=== PATIENT | female | born 1945 | race Caucasian/White ===

== ENCOUNTER 2018-03-28 13:40 | Observation (INO) ==
[2018-03-28] MEDS ORDERED: 0.9 % Sodium Chloride 1,000 ML IVC ONE ×3 (15:05→23:43)
[2018-03-28] MEDS ORDERED: Ondansetron 4 MG/2 ML VIAL IVP ONE (15:05)
--- NOTE | 2018-03-28 15:08 | Emergency Department Note ---
Disposition Clinical Impression: MATHEW (acute kidney injury), Hypokalemia Disposition: Admitted As Inpatient Condition: Good Referrals: Ramone Rader MD [Primary Care Provider] - Forms: ED Satisfaction Letter General Adult HPI - General Chief complaint: ED Urogenital-Female Stated complaint: unable to void Time Seen by Provider: 03/28/18 14:45 Source: patient Mode of arrival: ambulatory Limitations: no limitations Nursing Notes Reviewed: Yes Vital Signs Reviewed: Yes - History of Present Illness HPI Narrative: Patient presents for evaluation of decreased ability to void. She states she has the urge but is unable to get fluid out. Bedside ultrasound shows no significant fluid within the bladder. Patient has had decreased appetite with decreased by mouth intake over the last several weeks. These are more chronic symptoms that have been worsening in nature. She does have a history of frequent UTIs. Patient is not been checked recently. Patient will receive blood work, urinalysis, CT scan to rule out further pathology. Pain Scale: 0 - Related Data Previous Rx's Medication Instructions Recorded Cetirizine HCl [Zyrtec] 10 mg PO DAILY #4 capsule 08/26/17 Hydrocortisone 1% CREAM [Cortaid] 28 appl TP BID #1 bottle 08/26/17 Allergies Allergy/AdvReac Type Severity Reaction Status Date / Time Sulfa (Sulfonamide Allergy See Verified 03/28/18 13:59 Antibiotics) Comments sulfamethoxazole Allergy See Verified 03/28/18 13:59 [From Bactrim] Comments trimethoprim [From Bactrim] Allergy See Verified 03/28/18 13:59 Comments STEROIDS Allergy See Uncoded 03/28/18 13:59 Comments All systems ED: reviewed and negative except as stated. Review of Systems: As Per HPI Constitutional: Reports: weakness. Denies: fever, chills ENT ED: Denies: congestion Cardiovascular: Denies: chest pain, palpitations, dyspnea on exertion Respiratory: Denies: cough, dyspnea, wheezes Gastrointestinal: Reports: abdominal pain (Epigastric), nausea. 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 nondistended; no guarding, rebound, or tenderness to percussion Musculoskeletal: Calves symmetric, nontender Skin: No rash, normal skin tone Neuro: Alert and Oriented to person, place, and time; No focal deficit Course - Reevaluation(s) Reevaluation #1: Patient with hyperkalemia and significant dehydration on labs. CT scan does not show any significant acute abnormality. Patient be admitted for hydration the rapy and further evaluation. Vital Signs Temperature 98.1 F 03/28/18 13:59 Pulse Rate 118 03/28/18 13:59 Respiratory Rate 20 03/28/18 13:59 Blood Pressure 101/57 03/28/18 13:59 O2 Sat by Pulse Oximetry 88 03/28/18 13:59 Temperature 98.1 F 03/28/18 15:55 Pulse Rate 107 03/28/18 15:55 Respiratory Rate 18 03/28/18 15:55 Blood Pressure 101/57 03/28/18 15:55 O2 Sat by Pulse Oximetry 88 03/28/18 15:55 Oxygen Delivery Oxygen Delivery Room Air Medical Decision Making - Medical Records Medical records reviewed: Yes I reviewed the patient's medical records. - Lab Data Lab results reviewed: Yes I reviewed the patient's lab results. Result diagrams: 03/28/18 16:01 03/28/18 16:01 Lab Results 03/28/18 03/28/18 03/28/18 Range/Units 16:01 16:01 16:01 WBC 11.9 H (4.3-11.1) K/mcL RBC 5.84 H (3.82-4.97) M/mcL Hgb 17.4 H (11.5-15.4) g/dL Hct 51.1 H (35.3-44.9) % MCV 87.5 (83.0-100.0) fL MCH 29.8 (28.0-33.3) pg MCHC 34.1 (31.6-35.5) g/dL RDW 13.8 (11.5-14.5) % Plt Count 267 (140-400) K/mcL MPV 11.1 (9.4-12.4) fL Immature Gran % 0.4 (0-4) % Seg Neutrophils % 83.0 % Lymphocytes % 3.9 % Monocytes % 10.9 % Eosinophils % 1.6 % Basophils % 0.2 % Neutrophils # 9.9 H (1.6-8.9) K/mcL Lymphocytes # 0.5 L (0.6-4.6) K/mcL Monocytes # 1.3 (0.0-1.3) K/mcL Eosinophils # 0.2 (0.0-0.6) K/mcL Basophils # 0.0 (0.0-0.2) K/mcL Sodium 130 L (136-145) mEq/L Potassium 3.1 L (3.5-5.1) mEq/L Chloride 81 L (98-107) mEq/L Carbon Dioxide 38 H (23-29) mEq/L BUN 48 H (8-23) mg/dL Creatinine 1.42 H (0.60-1.20) mg/dL Est GFR ( Amer) 44 L (> 60) Est GFR (Non-Af Amer) 36 L (> 60) BUN/Creatinine Ratio 34 H (6-26) Glucose 301 H (70-105) mg/dL Calculated Osmolality 294 (280-300) Calcium 10.3 (8.6-10.3) mg/dL Total Bilirubin 0.8 (0.3-1.0) mg/dL Direct Bilirubin 0.2 (0.0-0.2) mg/dL Indirect Bilirubin 0.6 (0.0-1.2) mg/dL AST 16 (13-39) Units/L ALT 12 (7-52) Units/L Alkaline Phosphatase 71 (34-104) Units/L Troponin I < 0.03 (< 0.04) ng/mL Serum Total Protein 6.8 (6.4-8.9) g/dL Albumin 4.0 (3.5-5.7) g/dL Globulin 2.8 (2.4-3.5) g/dL Albumin/Globulin Ratio 1.4 (1.1-2.2) Lipase 106 H (11-82) Units/L TSH 0.433 (0.340-5.600) mcIU/mL - Radiology Data Radiology results reviewed: Yes I reviewed the patient's radiology results. - EKG Data EKG #1 EKG attestation: Yes I reviewed and interpreted this EKG. EKG results narrative: EKG shows sinus tachycardia with a heart rate of 117 OK interval 167. QRS 89. QTC 459. No significant ST elevations or depressions. No old EKG for comparison.
[2018-03-28] MEDS ORDERED: Isovue-370 500 ML INFUS..BTL IV ONE (15:37)
[2018-03-28 16:11] LABS: Basophils % 0.2 %; Eosinophils # 0.2 K/mcL (0.0-0.6); Eosinophils % 1.6 %; Hematocrit 51.1 % (35.3-44.9); Hemoglobin 17.4 g/dL (11.5-15.4); Immature Granulocytes % 0.4 % (0-4); Lymphocytes # 0.5 K/mcL (0.6-4.6); Lymphocytes % 3.9 %; Mean Corpuscular HGB Conc 34.1 g/dL (31.6-35.5); Mean Corpuscular Hemoglobin 29.8 pg (28.0-33.3); Mean Corpuscular Volume 87.5 fL (83.0-100.0); Mean Platelet Volume 11.1 fL (9.4-12.4); Monocytes # 1.3 K/mcL (0.0-1.3); Monocytes % 10.9 %; Neutrophils # 9.9 K/mcL (1.6-8.9); Platelet Count 267 K/mcL (140-400); Red Blood Count 5.84 M/mcL (3.82-4.97); Red Cell Distribution Width 13.8 % (11.5-14.5)
[2018-03-28 16:33] LABS: Alanine Aminotransferase 12 Units/L (7-52); Albumin/Globulin Ratio 1.4 (1.1-2.2); Alkaline Phosphatase 71 Units/L (34-104); Aspartate Amino Transferase 16 Units/L (13-39); BUN/Creatinine Ratio 34 (6-26); Bilirubin,Direct 0.2 mg/dL (0.0-0.2); Bilirubin,Indirect 0.6 mg/dL (0.0-1.2); Bilirubin,Total 0.8 mg/dL (0.3-1.0); Blood Urea Nitrogen 48 mg/dL (8-23); Calcium 10.3 mg/dL (8.6-10.3); Carbon Dioxide 38 mEq/L (23-29); Chloride 81 mEq/L (98-107); Globulin 2.8 g/dL (2.4-3.5); Glucose 301 mg/dL (70-105); Lipase 106 Units/L (11-82); Osmolality,Calculated 294 (280-300); Potassium 3.1 mEq/L (3.5-5.1); Sodium 130 mEq/L (136-145); Total Protein 6.8 g/dL (6.4-8.9); Troponin I < 0.03 ng/mL (< 0.04); eGFR For Non-African Americans 36 (> 60)
[2018-03-28 19:53] LABS: Bilirubin,Urine Negative (Negative); Blood,Urine Negative (Negative); Clarity,Urine Clear (Clear); Color,Urine Yellow (Yellow); Glucose,Urine (UA) 500 mg/dL (Normal); Ketones,Urine Negative (Negative); Leukocyte Esterase,Urine Negative (Negative); Nitrite,Urine Negative (Negative); Protein,Urine Negative (Neg-Trace); Specific Gravity,Urine 1.022 (1.010-1.025); Urobilinogen,Urine Normal (Normal)
[2018-03-28] MEDS ORDERED: Ondansetron 4 MG/2 ML VIAL IVP PRN (23:35)
[2018-03-28] MEDS ORDERED: Naloxone 0.4 MG/ML INJ IVP PRN (23:35)
[2018-03-28] MEDS ORDERED: Potassium Chloride 40 MEQ, Lidocaine 1% 2 ML in D5% in Water 500 ML IVPB ONE (23:40)
[2018-03-28] MEDS ORDERED: *HR* Dextrose 50 % in Water (Syg) 50 ML SYRINGE IVP PRN (23:45)
[2018-03-28] MEDS ORDERED: D5% in Water 1,000 ML IVC PRN (23:45)
[2018-03-28] MEDS ORDERED: Dextrose Gel 15 GM/37.5 ML TUBE PO PRN ×2 (23:45)
--- NOTE | 2018-03-28 23:52 | Internal Med History&Physical ---
Date of Encounter: 03/28/18 Time of Encounter: 23:15 Internal Medicine - H&P: HPI Chief complaint: Acute kidney injury Admitted From: Emergency Dept Plans for Post Hospital Care: Home History of present illness: Ms. Chery is a 72 year old female Patient presented to the emergency room with 2 week history of decreased urine output and loss of appetite. She states that she has not felt the urge to urinate very much, and went to her primary care doctor who started treating her for a UTI despite lack of positive urinalysis. She was put on an antibiotic which she does not know the name as well as oxybutynin. Her symptoms do not improve on this regimen however. She is also had loss of appetite, resulting in a 13 pound weight loss in the last few weeks. She has some nausea but denies vomiting, diarrhea, chest pain abdominal pain. She says that she does have some constipation normally. She states that no one else in her household has similar issues, and she cannot think of any precipitating factor. She came to the emergency room for further evaluation. In the ER patient's CBC was within normal limits. BMP showed a low sodium of 130, a low potassium of 3.1, elevated creatinine of 1.4 to an elevated blood sugar of 301. Patient's troponin was undetectable, TSH was within normal limits and patient's lipase was elevated at 106. Patient's urinalysis only showed 500 glucose, chest x-ray showed no acute abnormalities, abdomen and pelvis CT showed no acute abnormalities. In the ER patient was given 2 L of IV fluids, Zofran for nausea and was started on potassium chloride for her low potassium. Due to her electrolyte abnormalities and MATHEW, she was admitted to the hospital for further management. Upon my assessment patient states that she feels like she needs to go to the bathroom. She also states that she feels hungry and thirsty as well. She is a heavy smoker but has not been smoking much the last few weeks. She denies excessive alcohol use as well as drug use. Patient also denies history of pancreatitis and kidney disease. She does however state that she has a history of diabetes, restless leg syndrome, vertigo, high cholesterol and hypertension. She does not know her medications. Past Med Surg Social Fam HX - Past Medical History Medical history: diabetes, hypertension, other Additional medical history: vertigo, restless leg syndrome, baretts esophagus, ostopenia, DDD, constipation, emphysema, dyslipidemia, skin cancer Psychiatric history: depression - Past Surgical History Surgical History: other Additional surgical history: colonoscopy, excision right forearm scc, - Social History Smoking Status: Current every day smoker Smokeless Tobacco Status: No Alcohol use: rarely Drug use: none - Family History Mother History Unknown: Yes Living Status: Hx Family Endocrine Disorder: Yes (DM) Father History Unknown: Yes Living Status: Age at : 59 Hx Family Endocrine Disorder: Yes (DM) Internal Medicine - H&P: Meds Cetirizine HCl [Zyrtec] 10 mg PO DAILY #4 capsule 08/26/17 [Rx] Hydrocortisone 1% CREAM [Cortaid] 28 appl TP BID #1 bottle 08/26/17 [Rx] Allergy/AdvReac Type Severity Reaction Status Date / Time Sulfa (Sulfonamide Allergy See Verified 03/28/18 13:59 Antibiotics) Comments sulfamethoxazole Allergy See Verified 03/28/18 13:59 [From Bactrim] Comments trimethoprim [From Bactrim] Allergy See Verified 03/28/18 13:59 Comments STEROIDS Allergy See Uncoded 03/28/18 13:59 Comments All Systems PM: A 10-system review of systems was performed and is negative for pertinent findings except as documented above in the HPI. - Constitutional Vitals: Temp Pulse Resp BP Pulse Ox 98.1 F 99 16 105/63 95 03/28/18 21:50 03/28/18 21:50 03/28/18 21:50 03/28/18 21:50 03/28/18 21:50 General appearance: Present: cooperative, A&O X 3, pleasant, no acute distress, answers questions appropriately Exam: As above - Head Head exam: Present: normal inspection - Eye Eye exam: Present: EOMI, normal appearance - Neck Neck exam general surgery: Absent: tenderness - Respiratory Respiratory exam: Present: decreased breath sounds, wheezes. Absent: chest wall tenderness, CTAB, rales, respiratory distress, rhonchi - Cardiovascular Cardiovascular exam: Present: RRR. Absent: diastolic murmur, systolic murmur - GI/Abdominal GI/Abdominal exam: Present: normal bowel sounds, soft. Absent: tenderness Additional comments: Palpation of the abdomen caused sensation of nausea with patient - Extremities Exam Extremities exam: Present: warm, radial pulses palpable and symmetrical. Absent: calf tenderness, pedal edema, tenderness - Neurological Exam Neurological exam: Present: no focal deficits, strengths equal and symetr throughout. Absent: motor sensory deficit, facial droop, speech deficit - Skin Skin exam: Present: dry, normal color, warm Internal Med - H&P Results - Labs CBC & Chem 7: 03/28/18 16:01 03/28/18 16:01 Labs: Short CBC 03/28/18 Range/Units 16:01 WBC 11.9 H (4.3-11.1) K/mcL Hgb 17.4 H (11.5-15.4) g/dL Hct 51.1 H (35.3-44.9) % Plt Count 267 (140-400) K/mcL Neutrophils # 9.9 H (1.6-8.9) K/mcL BMP 03/28/18 16:01 Sodium 130 L Potassium 3.1 L Chloride 81 L Carbon Dioxide 38 H BUN 48 H Creatinine 1.42 H Glucose 301 H Calcium 10.3 Cardiac Enzymes 03/28/18 Range/Units 16:01 Troponin I < 0.03 (< 0.04) ng/mL Liver Function 03/28/18 Range/Units 16:01 Total Bilirubin 0.8 (0.3-1.0) mg/dL Direct Bilirubin 0.2 (0.0-0.2) mg/dL AST 16 (13-39) Units/L ALT 12 (7-52) Units/L Alkaline Phosphatase 71 (34-104) Units/L Albumin 4.0 (3.5-5.7) g/dL Urine 03/28/18 Range/Units 19:35 Urine Color Yellow (Yellow) Urine Clarity Clear (Clear) Urine pH 6.0 (5.0-8.0) pH Units Ur Specific [place] 1.022 (1.010-1.025) Urine Protein Negative (Neg-Trace) mg/dL Urine Glucose (UA) 500 H (Normal) mg/dL - Impressions ITS Impressions Chest X-Ray 03/28/18 15:07 IMPRESSION: No acute findings. D/ / Gurjit Pérez MD / Gurjit Pérez MD Interpreting Provider: Gurjit Pérez MD Abdomen/Pelvis CT 03/28/18 15:37 IMPRESSION: 1. Uncomplicated diverticulosis 2. Heavy atherosclerosis. 3. Elsewhere, no significant abnormality appreciated. D/ / Jv Andre / Jv Andre Interpreting Provider: Jv Andre - Assessment and plan (1) MATHEW (acute kidney injury) Current Visit: Yes Status: Acute Assessment and plan: Likely prerenal as patient has not been eating or drinking much lately and has had decreased urine output. Patient was given 2 L of IV fluids in the emergency room. Additional liter of IV fluids given upon arrival to the floor Repeat labs in the morning (2) Hypokalemia Current Visit: Yes Status: Acute Assessment and plan: Likely secondary to poor by mouth intake. Patient was given 40 mEq of potassium by mouth in the emergency room Additional 40 mEq of potassium IV now Repeat labs in the morning (3) Hyponatremia Current Visit: Yes Status: Acute Assessment and plan: Likely secondary to poor nutrition, prerenal. Patient received 2 L of IV fluids in the ER. Continue IV fluid hydration Recheck labs in the morning (4) Diabetes Current Visit: Yes Status: Acute Assessment and plan: Patient is diabetic, with elevated blood sugar of 301 on lab testing. Monitor blood sugars with meals and at night Low-dose sliding scale insulin as needed Diabetic diet Qualifiers: Diabetes mellitus type: type 2 Diabetes mellitus complication status: with hyperglycemia Qualified Code(s): E11.65 - Type 2 diabetes mellitus with hyperglycemia (5) Wheezing Current Visit: Yes Status: Acute Assessment and plan: Patient's lung exam revealed wheezing bilaterally. Patient has a long history of smoking, with a diagnosis of COPD. She wears 2-3 L of oxygen at home. Currently she is not requiring more oxygen than her baseline. Chest x-ray showed no acute abnormalities. Breathing treatments with DuoNeb nebs and albuterol Continue oxygen supplementation as needed (6) Elevated lipase Current Visit: Yes Status: Acute Assessment and plan: Patient's lipase is elevated at 106, but she does not have abdominal pain on exam nor is there evidence of pancreatitis on CT scan of the abdomen. Continue to treat nausea with Zofran as needed Diabetic diet as tolerated (7) Nausea Current Visit: Yes Status: Acute Assessment and plan: patient has some nausea when palpating in the epigastric region of the abdomen, denies abdominal pain. Patient was given Zofran in the emergency room. Continue Zofran as needed Diabetic diet as tolerated (8) Lung nodule < 6cm on CT Current Visit: Yes Status: Acute Assessment and plan: Patient had CT performed on March 08 which indicated: 1. 4 mm right lower lobe pulmonary nodule, slightly increased in size since 2014. Due to its slow increase in size, short interval follow-up in 3-6 months is recommended to assess stability. 2. Stable 7 mm ground-glass opacity in the right apex stable since 2014. RECOMMENDATIONS: Per ACR Lung-RADS Version 1.0 Category 4A, Suspicious (Findings for which additional diagnostic testing and/or tissue sampling is recommended). Management : 3 Month LDCT; PET/CT may be used when there is a > 8mm solid component. Continue recommended follow-up (9) DVT prophylaxis Current Visit: Yes Status: Acute Assessment and plan: Subcutaneous heparin - Time Spent With Patient Total time spent is greater than 50% in coordination of care (as documented) at patient's floor/unit and/or counseling patient: Greater than 35 minutes
[2018-03-28] MEDS ORDERED: Ipratropium/Albuterol Neb 3 ML ONE (23:56)
[2018-03-28] MEDS: Ipratropium/Albuterol Neb 3 ML IH SCH (23:58)
[2018-03-29] MEDS: Ipratropium/Albuterol Neb 3 ML IH SCH ×2 (04:10→11:43)
[2018-03-29] MEDS ORDERED: *HR* Heparin 5,000 UNIT/ML VIAL SQ SCH (06:00)
[2018-03-29 06:55] LABS: Hematocrit 41.9 % (35.3-44.9); Mean Corpuscular HGB Conc 32.7 g/dL (31.6-35.5); Mean Corpuscular Hemoglobin 29.5 pg (28.0-33.3); Mean Corpuscular Volume 90.3 fL (83.0-100.0); Mean Platelet Volume 11.2 fL (9.4-12.4); Platelet Count 203 K/mcL (140-400); Red Blood Count 4.64 M/mcL (3.82-4.97); Red Cell Distribution Width 14.1 % (11.5-14.5)
[2018-03-29 06:57] LABS: Hemoglobin 13.7 g/dL (11.5-15.4)
[2018-03-29 07:15] VITALS: BP 99/58
[2018-03-29 07:16] LABS: BUN/Creatinine Ratio 36 (6-26); Blood Urea Nitrogen 31 mg/dL (8-23); Calcium 8.2 mg/dL (8.6-10.3); Carbon Dioxide 34 mEq/L (23-29); Chloride 98 mEq/L (98-107); Glucose 183 mg/dL (70-105); Osmolality,Calculated 291 (280-300); Potassium 3.5 mEq/L (3.5-5.1); Sodium 135 mEq/L (136-145); eGFR For Non-African Americans > 60 (> 60)
[2018-03-29] MEDS ORDERED: Insulin LISPRO 300 UNITS/3 ML VIAL SQ SCH ×2 (07:30→21:00)
--- NOTE | 2018-03-29 10:41 | Discharge Summary ---
- NOTES TO OUTPATIENT PROVIDER Notes to Outpatient Provider: Please follow with PCP in one week. Please quit smoking and go f/u CT of Chest in 4 months for your Rt lung nodule. You do have diabetes with high blood sugars, so please take Metformin 500mg PO BID and hydrate well. Orders not resulted at time of discharge: Pending orders 03/28/18 15:06 ECG 12 lead ECG [ECG] Stat Date of Encounter: 03/29/18 Time of Encounter: 10:38 - Discharge Diagnosis (1) MATHEW (acute kidney injury) Priority: Primary Status: Acute (2) Lung nodule Priority: Secondary Status: Acute (3) Diabetes Priority: Secondary Status: Acute Qualifiers: Diabetes mellitus type: type 2 Diabetes mellitus complication status: with hyperglycemia Qualified Code(s): E11.65 - Type 2 diabetes mellitus with hyperglycemia (4) Elevated lipase Priority: Secondary Status: Acute Hospital course: Ms. Chery is a 72 year old female with known PMH of vertigo, restless leg syndrome, barrets esophagus, ostopenia, DDD, emphysema, dyslipidemia, and skin cancer presented to the emergency room with 2 week history of decreased urine output and loss of appetite. Pt admitted in the hospital for dehydration acute kidney injury. She also happened to have high blood sugars. Patient was started on IV hydration and her symptoms improved today. She started to oral intake well. 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 Also recommended to continue taking metformin 500 mg PO b.i.d.. She does have slightly increased in size of lung nodule to 4mm compare to 2015, recommend to quit smoking and f/u CT of chest in 3-4 months. - Time Spent with Patient Total time spent providing and/or coordinating discharge services: - Discharge Medications Prescriptions: metFORMIN [Glucophage] 500 mg PO BIDWM #60 tablet Nicotine Patch [Nicoderm] 14 mg TD DAILY #30 patch.td24 Home Medications: Cetirizine HCl [Zyrtec] 10 mg PO DAILY #4 capsule 08/26/17 [Rx] Hydrocortisone 1% CREAM [Cortaid] 28 appl TP BID #1 bottle 08/26/17 [Rx] Nicotine Patch [Nicoderm] 14 mg TD DAILY #30 patch.td24 03/29/18 [Rx] metFORMIN [Glucophage] 500 mg PO BIDWM #60 tablet 03/29/18 [Rx] Allergies/Adverse Reactions: Allergy/AdvReac Type Severity Reaction Status Date / Time Sulfa (Sulfonamide Allergy See Verified 03/28/18 13:59 Antibiotics) Comments sulfamethoxazole Allergy See Verified 03/28/18 13:59 [From Bactrim] Comments trimethoprim [From Bactrim] Allergy See Verified 03/28/18 13:59 Comments STEROIDS Allergy See Uncoded 03/28/18 13:59 Comments Date of admission: 03/28/18 20:52 Primary care physician: Ramone Rader MD Consults: 03/28/18 23:46 Consult to Nurse Navigator [CONS] Routine Comment: - Constitutional Vitals: Temp Pulse Resp BP Pulse Ox 97.8 F 92 16 99/58 97 03/29/18 07:14 03/29/18 07:14 03/29/18 07:14 03/29/18 07:14 03/29/18 07:14 General appearance: Present: cooperative, A&O X 3, pleasant, no acute distress, answers questions appropriately Exam: Gen: Alert, awake, Oriented to time,place and person Chest: Diminished breath sounds B/L, No wheezing, No crackles, No rales Heart: S1S2+ RRR No murmurs Abd: Soft, NT, BS +, No organomegaly Ext: No edema, pulses are palpable, No calf tenderness Neuro : Benign findings Skin: No rash. - Patient Status Disposition: Home, Self-Care Condition: Good Overall status at discharge: patient is back to baseline - Discharge Instructions Follow Up With: Ramone Rader MD [Primary Care Provider] - - Diet and Activity Activity: increase activity as tolerated Diet: low salt diet
--- NOTE | 2018-03-29 16:45 | Electrocardiograph Report ---
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
== END 2018-03-29 14:45 | disposition home or self-care (01) ==
LOC: 3BNU 13:40 → EMEROOARM 13:40 → SUATTDRO 20:52 → 3BNU 21:33
PROVIDERS: ADMIT Family Medicine; ATTEND Family Medicine

== ENCOUNTER 2019-03-28 08:42 | Observation (INO) ==
[2019-03-28] MEDS ORDERED: cefTRIAXone 1,000 MG in Water for inj. (sterile) 10 ML IVP ONE (09:06)
[2019-03-28] MEDS ORDERED: 0.9 % Sodium Chloride 1,000 ML IVC ONE ×2 (09:06→12:11)
[2019-03-28] MEDS ORDERED: Azithromycin 500 MG in 0.9 % Sodium Chloride 250 ML IVPB ONE (09:06)
[2019-03-28] MEDS ORDERED: Ipratropium/Albuterol Neb 3 ML IH ONE (09:08)
[2019-03-28] MEDS ORDERED: methylPREDNISolone 125 MG/2 ML VIAL IVP ONE (09:08)
[2019-03-28] MEDS ORDERED: Isovue-370 500 ML BOTTLE IVP ONE (09:09)
[2019-03-28 09:22] LABS: Basophils % 0.2 %; Eosinophils % 0.3 %; Hematocrit 42.8 % (35.3-44.9); Hemoglobin 14.2 g/dL (11.5-15.4); Immature Granulocytes % 0.6 % (0-4); Lymphocytes # 0.6 K/mcL (0.6-4.6); Lymphocytes % 6.2 %; Mean Corpuscular HGB Conc 33.2 g/dL (31.6-35.5); Mean Corpuscular Hemoglobin 30.7 pg (28.0-33.3); Mean Corpuscular Volume 92.6 fL (83.0-100.0); Mean Platelet Volume 10.9 fL (9.4-12.4); Monocytes % 10.9 %; Neutrophils # 7.6 K/mcL (1.6-8.9); Platelet Count 200 K/mcL (140-400); Red Blood Count 4.62 M/mcL (3.82-4.97); Red Cell Distribution Width 14.6 % (11.5-14.5); Segmented Neutrophils % 81.8 %; White Blood Count 9.3 K/mcL (4.3-11.1)
[2019-03-28 09:30] LABS: INR 1.1; Prothrombin Time 12.7 Seconds (9.4-12.1)
[2019-03-28 09:32] LABS: Activated Partial Thrombo Time 26.3 Seconds (26.0-36.0)
[2019-03-28 10:30] LABS: Alanine Aminotransferase 16 Units/L (7-52); Albumin 3.2 g/dL (3.5-5.7); Albumin/Globulin Ratio 1.1 (1.1-2.2); Alkaline Phosphatase 69 Units/L (34-104); Aspartate Amino Transferase 15 Units/L (13-39); BUN/Creatinine Ratio 24 (6-26); Bilirubin,Direct 0.1 mg/dL (0.0-0.2); Bilirubin,Indirect 0.5 mg/dL (0.0-1.0); Bilirubin,Total 0.6 mg/dL (0.3-1.0); Blood Urea Nitrogen 19 mg/dL (8-23); Calcium 8.7 mg/dL (8.6-10.3); Carbon Dioxide 29 mEq/L (23-29); Chloride 101 mEq/L (98-107); Globulin 2.8 g/dL (2.4-3.5); Glucose 136 mg/dL (70-105); Magnesium 1.7 mg/dL (1.6-2.6); Osmolality,Calculated 290 (280-300); Potassium 3.6 mEq/L (3.5-5.1); Sodium 138 mEq/L (136-145); Troponin I < 0.03 ng/mL (< 0.04); eGFR For African Americans > 60 (> 60); eGFR For Non-African Americans > 60 (> 60)
[2019-03-28 10:34] LABS: Bilirubin,Urine Negative (Negative); Blood,Urine Negative (Negative); Clarity,Urine Clear (Clear); Color,Urine Dark Yellow (Yellow); Glucose,Urine (UA) 500 mg/dL (Normal); Ketones,Urine Negative (Negative); Leukocyte Esterase,Urine Negative (Negative); Nitrite,Urine Negative (Negative); Protein,Urine 100 mg/dL (Neg-Trace); Specific Gravity,Urine 1.028 (1.010-1.025); Urobilinogen,Urine Normal (Normal)
[2019-03-28 10:36] LABS: Bacteria,Urine Few per hpf (None-Few); Hyaline Casts,Urine None Seen per lpf (None-Few); Squamous Epithelial Cell,Urine Many per lpf (None-Few); WBC,Urine 0-3 per hpf (0-3)
[2019-03-28] MEDS ORDERED: Naloxone 0.4 MG/ML INJ IVP PRN (14:06)
[2019-03-28] MEDS ORDERED: Acetaminophen 325 MG TABLET PO PRN (14:06)
[2019-03-28] MEDS ORDERED: Dextrose Gel 15 GM/37.5 ML TUBE PO PRN ×2 (14:16)
[2019-03-28] MEDS ORDERED: *HR* Dextrose 50 % in Water (Syg) 50 ML SYRINGE IVP PRN (14:16)
[2019-03-28] MEDS ORDERED: D5% in Water 1,000 ML IVC PRN (14:16)
[2019-03-28] MEDS: Ipratropium/Albuterol Neb 3 ML IH SCH ×2 (15:21→22:03)
[2019-03-28] MEDS: Insulin LISPRO 300 UNITS/3 ML VIAL SQ SCH (16:40)
[2019-03-28] MEDS: *HR* Heparin 5,000 UNIT/ML VIAL SQ SCH (18:24)
[2019-03-28] MEDS ORDERED: Insulin DETEMIR 100 UNIT/ML X5UNITS SQ SCH (21:00)
[2019-03-28] MEDS: Budesonide/Formoterol 160/4.5 1 PUFF INH IH SCH (22:04)
[2019-03-29] MEDS: Ipratropium/Albuterol Neb 3 ML IH SCH ×4 (00:41→12:20)
[2019-03-29] MEDS: *HR* Heparin 5,000 UNIT/ML VIAL SQ SCH (05:19)
[2019-03-29 06:55] VITALS: BP 118/88
[2019-03-29 06:56] LABS: Basophils % 0.2 %; Hematocrit 38.3 % (35.3-44.9); Immature Granulocytes % 0.2 % (0-4); Lymphocytes # 0.3 K/mcL (0.6-4.6); Lymphocytes % 5.9 %; Mean Corpuscular HGB Conc 32.1 g/dL (31.6-35.5); Mean Corpuscular Hemoglobin 30.4 pg (28.0-33.3); Mean Corpuscular Volume 94.6 fL (83.0-100.0); Mean Platelet Volume 10.5 fL (9.4-12.4); Monocytes # 0.6 K/mcL (0.0-1.3); Neutrophils # 4.7 K/mcL (1.6-8.9); Platelet Count 196 K/mcL (140-400); Red Blood Count 4.05 M/mcL (3.82-4.97); Red Cell Distribution Width 14.5 % (11.5-14.5); Segmented Neutrophils % 82.7 %; White Blood Count 5.7 K/mcL (4.3-11.1)
[2019-03-29 06:58] LABS: Hemoglobin 12.3 g/dL (11.5-15.4)
[2019-03-29] MEDS: Insulin LISPRO 300 UNITS/3 ML VIAL SQ SCH ×2 (08:08→12:45)
[2019-03-29] MEDS: Budesonide/Formoterol 160/4.5 1 PUFF INH IH SCH (08:34)
[2019-03-29 08:44] LABS: BUN/Creatinine Ratio 38 (6-26); Blood Urea Nitrogen 27 mg/dL (8-23); Calcium 8.8 mg/dL (8.6-10.3); Carbon Dioxide 29 mEq/L (23-29); Chloride 105 mEq/L (98-107); Glucose 98 mg/dL (70-105); Magnesium 1.8 mg/dL (1.6-2.6); Osmolality,Calculated 299 (280-300); Phosphorous 3.2 mg/dL (2.7-4.5); Potassium 4.4 mEq/L (3.5-5.1); Sodium 142 mEq/L (136-145); eGFR For African Americans > 60 (> 60); eGFR For Non-African Americans > 60 (> 60)
[2019-03-29] MEDS ORDERED: Azithromycin 250 MG TABLET PO SCH (09:00)
[2019-03-29] MEDS ORDERED: cefTRIAXone 1,000 MG in Water for inj. (sterile) 10 ML IVP SCH (09:00)
[2019-03-29] MEDS ORDERED: predniSONE 20 MG TABLET PO SCH (09:00)
[2019-03-29] MEDS ORDERED: Aspirin Enteric Coated 81 MG Tablet PO SCH (09:00)
== END 2019-03-29 13:25 | disposition home or self-care (01) ==
LOC: CDU 08:42 → EMEROOARM 08:42 → SUATTDRO 13:53 → CDU 14:21
PROVIDERS: ADMIT Internal Medicine; ATTEND Internal Medicine

== ENCOUNTER 2020-02-25 10:40 | Observation (INO) ==
[2020-02-25 11:20] LABS: Basophils % 0.3 %; Eosinophils # 0.1 K/mcL (0.0-0.6); Eosinophils % 2.4 %; Hematocrit 49.9 % (35.3-44.9); Hemoglobin 15.4 g/dL (11.5-15.4); Immature Granulocytes % 0.5 % (0-4); Lymphocytes % 16.3 %; Mean Corpuscular HGB Conc 30.9 g/dL (31.6-35.5); Mean Corpuscular Hemoglobin 29.3 pg (28.0-33.3); Mean Corpuscular Volume 94.9 fL (83.0-100.0); Mean Platelet Volume 11.2 fL (9.4-12.4); Monocytes # 0.7 K/mcL (0.0-1.3); Monocytes % 12.4 %; Neutrophils # 4.1 K/mcL (1.6-8.9); Platelet Count 191 K/mcL (140-400); Red Blood Count 5.26 M/mcL (3.82-4.97); Red Cell Distribution Width 15.3 % (11.5-14.5); Segmented Neutrophils % 68.1 %
[2020-02-25] MEDS ORDERED: Isovue-370 500 ML BOTTLE IVP ONE (11:23)
[2020-02-25] MEDS ORDERED: Aspirin 325 MG TABLET PO ONE (11:25)
[2020-02-25 11:43] LABS: BUN/Creatinine Ratio 37 (6-26); Blood Urea Nitrogen 30 mg/dL (8-23); Calcium 9.7 mg/dL (8.6-10.3); Carbon Dioxide 35 mEq/L (23-29); Chloride 96 mEq/L (98-107); Glucose 210 mg/dL (70-105); Osmolality,Calculated 296 (280-300); Potassium 4.1 mEq/L (3.5-5.1); Sodium 137 mEq/L (136-145); Troponin I < 0.03 ng/mL (< 0.04); eGFR For African Americans > 60 (> 60); eGFR For Non-African Americans > 60 (> 60)
[2020-02-25 12:52] LABS: Adenovirus Not Detected (Not Detect); Bordetella Pertussis Not Detected (Not Detect); Chlamydophila pneumoniae Not Detected (Not Detect); Coronavirus 229E Not Detected (Not Detect); Coronavirus HKU1 Not Detected (Not Detect); Coronavirus NL63 Not Detected (Not Detect); Coronavirus OC43 Not Detected (Not Detect); Human Metapneumovirus Not Detected (Not Detect); Human Rhinovirus/Enterovirus Not Detected (Not Detect); Influenza A Subtype 2009 H1 Not Detected (Not Detect); Influenza B Not Detected (Not Detect); Mycoplasma pneumoniae Not Detected (Not Detect); Parainfluenza Virus 1 Not Detected (Not Detect); Parainfluenza Virus 2 Not Detected (Not Detect); Parainfluenza Virus 3 Not Detected (Not Detect); Parainfluenza Virus 4 Not Detected (Not Detect); Respiratory Syncytial Virus Not Detected (Not Detect); SARS-CoV-2 Not Detected (Not Detect)
[2020-02-25] MEDS ORDERED: Mag Hydrox/Al Hydrox/Simeth 30 ML UDC PO PRN (16:21)
[2020-02-25] MEDS ORDERED: Naloxone 0.4 MG/ML INJ IVP PRN (16:21)
[2020-02-25] MEDS ORDERED: Acetaminophen 325 MG TABLET PO PRN (16:21)
[2020-02-25] MEDS ORDERED: *HR* HYDROcodone/Acet 5/325 mg TABLET PO PRN (16:21)
[2020-02-25] MEDS ORDERED: MOM Conc 10 ML UD.LIQ PO PRN (16:21)
[2020-02-25] MEDS ORDERED: Ondansetron 4 MG/2 ML VIAL IVP PRN (16:21)
[2020-02-25] MEDS ORDERED: Ipratropium/Albuterol Neb 3 ML IH PRN (16:22)
[2020-02-25] MEDS ORDERED: Dextrose Gel 15 GM/37.5 ML TUBE PO PRN ×2 (16:24)
[2020-02-25] MEDS ORDERED: *HR* Dextrose 50 % in Water (Vial) 50 ML VIAL IVP PRN (16:24)
[2020-02-25] MEDS ORDERED: D5% in Water 1,000 ML IVC PRN (16:24)
[2020-02-25] MEDS: Insulin LISPRO 300 UNITS/3 ML VIAL SQ SCH ×2 (17:03→21:12)
[2020-02-25] MEDS: *HR* Heparin 5,000 UNIT/ML VIAL SQ SCH (17:04)
[2020-02-25] MEDS ORDERED: Acetylcysteine 10% 2 ML INHSOL IH ONE (20:00)
[2020-02-25] MEDS: Doxycycline 100 MG CAPSULE PO SCH (21:14)
[2020-02-25] MEDS: Ipratropium/Albuterol Neb 3 ML IH SCH (21:37)
[2020-02-25] MEDS: Budesonide/Formoterol 160/4.5 1 PUFF INH IH SCH (21:38)
[2020-02-26] MEDS: MethylPREDNISolone 40 MG/ML VIAL IVP SCH ×3 (00:01→17:17)
[2020-02-26 01:39] LABS: Basophils % 0.2 %; Eosinophils % 0.4 %; Hematocrit 43.4 % (35.3-44.9); Immature Granulocytes % 0.2 % (0-4); Lymphocytes # 0.6 K/mcL (0.6-4.6); Lymphocytes % 12.8 %; Mean Corpuscular HGB Conc 31.1 g/dL (31.6-35.5); Mean Corpuscular Hemoglobin 29.3 pg (28.0-33.3); Mean Corpuscular Volume 94.3 fL (83.0-100.0); Mean Platelet Volume 11.8 fL (9.4-12.4); Monocytes # 0.4 K/mcL (0.0-1.3); Monocytes % 9.1 %; Neutrophils # 3.6 K/mcL (1.6-8.9); Platelet Count 169 K/mcL (140-400); Red Cell Distribution Width 14.9 % (11.5-14.5); Segmented Neutrophils % 77.3 %; White Blood Count 4.7 K/mcL (4.3-11.1)
[2020-02-26 01:41] LABS: Hemoglobin 13.5 g/dL (11.5-15.4)
[2020-02-26 01:57] LABS: BUN/Creatinine Ratio 42 (6-26); Blood Urea Nitrogen 32 mg/dL (8-23); Calcium 9.1 mg/dL (8.6-10.3); Carbon Dioxide 33 mEq/L (23-29); Chloride 98 mEq/L (98-107); Glucose 131 mg/dL (70-105); Osmolality,Calculated 293 (280-300); Potassium 4.1 mEq/L (3.5-5.1); Sodium 137 mEq/L (136-145); eGFR For African Americans > 60 (> 60); eGFR For Non-African Americans > 60 (> 60)
[2020-02-26] MEDS: Ipratropium/Albuterol Neb 3 ML IH SCH ×4 (03:24→21:02)
[2020-02-26] MEDS: *HR* Heparin 5,000 UNIT/ML VIAL SQ SCH ×2 (05:18→17:17)
[2020-02-26] MEDS: Insulin LISPRO 300 UNITS/3 ML VIAL SQ SCH ×4 (08:39→20:40)
[2020-02-26] MEDS: Doxycycline 100 MG CAPSULE PO SCH ×2 (08:40→20:40)
[2020-02-26] MEDS: Budesonide/Formoterol 160/4.5 1 PUFF INH IH SCH ×2 (09:38→21:02)
[2020-02-27 01:23] LABS: BUN/Creatinine Ratio 41 (6-26); Blood Urea Nitrogen 43 mg/dL (8-23); Calcium 9.4 mg/dL (8.6-10.3); Carbon Dioxide 29 mEq/L (23-29); Chloride 101 mEq/L (98-107); Glucose 294 mg/dL (70-105); Osmolality,Calculated 302 (280-300); Potassium 4.3 mEq/L (3.5-5.1); Sodium 135 mEq/L (136-145); eGFR For African Americans > 60 (> 60); eGFR For Non-African Americans 52 (> 60)
[2020-02-27] MEDS: Ipratropium/Albuterol Neb 3 ML IH SCH (03:38)
[2020-02-27] MEDS: *HR* Heparin 5,000 UNIT/ML VIAL SQ SCH (05:22)
[2020-02-27 06:39] VITALS: BP 145/71
[2020-02-27] MEDS: Doxycycline 100 MG CAPSULE PO SCH (08:15)
[2020-02-27] MEDS: Insulin LISPRO 300 UNITS/3 ML VIAL SQ SCH (08:17)
[2020-02-27] MEDS ORDERED: predniSONE 20 MG TABLET PO SCH (09:00)
== END 2020-02-27 10:29 | disposition home or self-care (01) ==
LOC: EMEROOARM 10:40 → 3ANU 10:40 → 3BNU 15:41
PROVIDERS: ADMIT Internal Medicine; ATTEND Internal Medicine

== ENCOUNTER 2020-03-18 19:17 | Observation (INO) ==
[2020-03-18 20:36] LABS: Basophils % 0.2 %; Eosinophils # 0.1 K/mcL (0.0-0.6); Eosinophils % 1.6 %; Hematocrit 48.3 % (35.3-44.9); Hemoglobin 15.7 g/dL (11.5-15.4); Immature Granulocytes % 0.3 % (0-4); Lymphocytes # 0.5 K/mcL (0.6-4.6); Lymphocytes % 7.5 %; Mean Corpuscular HGB Conc 32.5 g/dL (31.6-35.5); Mean Corpuscular Hemoglobin 30.8 pg (28.0-33.3); Mean Corpuscular Volume 94.9 fL (83.0-100.0); Mean Platelet Volume 11.2 fL (9.4-12.4); Monocytes # 0.8 K/mcL (0.0-1.3); Monocytes % 11.8 %; Neutrophils # 5.1 K/mcL (1.6-8.9); Platelet Count 173 K/mcL (140-400); Red Blood Count 5.09 M/mcL (3.82-4.97); Red Cell Distribution Width 15.6 % (11.5-14.5); Segmented Neutrophils % 78.6 %; White Blood Count 6.4 K/mcL (4.3-11.1)
[2020-03-18 20:45] LABS: Prothrombin Time 11.3 Seconds (9.4-12.1)
[2020-03-18 20:53] LABS: Activated Partial Thrombo Time 20.4 Seconds (26.0-36.0)
[2020-03-18 20:56] LABS: Bilirubin,Urine Negative (Negative); Blood,Urine Negative (Negative); Clarity,Urine Clear (Clear); Color,Urine Light-Yellow (Yellow); Glucose,Urine (UA) 500 mg/dL (Normal); Ketones,Urine Negative (Negative); Leukocyte Esterase,Urine Negative (Negative); Mucus,Urine Few per lpf (None-Few); Nitrite,Urine Negative (Negative); Protein,Urine Trace mg/dL (Neg-Trace); Specific Gravity,Urine 1.022 (1.010-1.025); Squamous Epithelial Cell,Urine Moderate per hpf (None-Few); Urobilinogen,Urine Normal (Normal); WBC,Urine 0-3 per hpf (0-3)
[2020-03-18 20:59] LABS: Alanine Aminotransferase 18 Units/L (7-52); Albumin 3.8 g/dL (3.5-5.7); Albumin/Globulin Ratio 1.4 (1.1-2.2); Alkaline Phosphatase 73 Units/L (34-104); Aspartate Amino Transferase 20 Units/L (13-39); BUN/Creatinine Ratio 24 (6-26); Bilirubin,Direct 0.1 mg/dL (0.0-0.2); Bilirubin,Indirect 0.3 mg/dL (0.0-1.0); Bilirubin,Total 0.4 mg/dL (0.3-1.0); Blood Urea Nitrogen 24 mg/dL (8-23); C-Reactive Protein < 5 mg/L (Less than 10); Calcium 9.7 mg/dL (8.6-10.3); Carbon Dioxide 34 mEq/L (23-29); Chloride 99 mEq/L (98-107); Globulin 2.7 g/dL (2.4-3.5); Glucose 211 mg/dL (70-105); Osmolality,Calculated 302 (280-300); Potassium 4.1 mEq/L (3.5-5.1); Sodium 141 mEq/L (136-145); Total Protein 6.5 g/dL (6.4-8.9); Troponin I < 0.03 ng/mL (< 0.04); eGFR For African Americans > 60 (> 60); eGFR For Non-African Americans 54 (> 60)
[2020-03-18] MEDS ORDERED: Isovue-370 500 ML BOTTLE IVP ONE (21:14)
[2020-03-18] MEDS ORDERED: Azithromycin 500 MG in 0.9 % Sodium Chloride 250 ML IVPB SCH (23:45)
[2020-03-18] MEDS ORDERED: Dextrose Gel 15 GM/37.5 ML TUBE PO PRN ×2 (23:52)
[2020-03-18] MEDS ORDERED: *HR* Dextrose 50 % in Water (Vial) 50 ML VIAL IVP PRN (23:52)
[2020-03-18] MEDS ORDERED: D5% in Water 1,000 ML IVC PRN (23:52)
[2020-03-18] MEDS ORDERED: Naloxone 0.4 MG/ML INJ IVP PRN (23:53)
[2020-03-18] MEDS ORDERED: Acetaminophen 325 MG TABLET PO PRN (23:53)
[2020-03-18] MEDS ORDERED: Nitroglycerin 0.4 MG TAB.SUBL SL PRN (23:58)
[2020-03-19] MEDS ORDERED: Levalbuterol Neb 1.25 MG/3 ML IH SCH
[2020-03-19] MEDS ORDERED: Ipratropium/Albuterol Neb 3 ML IH ONE (00:01)
[2020-03-19] MEDS ORDERED: Azithromycin 500 MG in 0.9 % Sodium Chloride 250 ML IVPB SCH (02:00)
[2020-03-19] MEDS: Insulin LISPRO 300 UNITS/3 ML VIAL SQ SCH ×4 (02:16→12:16)
[2020-03-19] MEDS: Famotidine 20 MG TABLET PO SCH ×2 (02:23→09:13)
[2020-03-19 02:36] LABS: Hematocrit 43.4 % (35.3-44.9); Mean Corpuscular HGB Conc 31.1 g/dL (31.6-35.5); Mean Corpuscular Hemoglobin 29.5 pg (28.0-33.3); Mean Corpuscular Volume 94.8 fL (83.0-100.0); Mean Platelet Volume 11.3 fL (9.4-12.4); Platelet Count 155 K/mcL (140-400); Red Blood Count 4.58 M/mcL (3.82-4.97); Red Cell Distribution Width 15.8 % (11.5-14.5); White Blood Count 5.2 K/mcL (4.3-11.1)
[2020-03-19 02:37] LABS: Hemoglobin 13.5 g/dL (11.5-15.4)
[2020-03-19 02:59] LABS: BUN/Creatinine Ratio 26 (6-26); Blood Urea Nitrogen 28 mg/dL (8-23); Calcium 8.6 mg/dL (8.6-10.3); Carbon Dioxide 30 mEq/L (23-29); Chloride 101 mEq/L (98-107); Chol/HDL Ratio 2.3 (0-4.9); Cholesterol 147 mg/dL (< 200); Glucose 389 mg/dL (70-105); HDL Cholesterol 65 mg/dL (40-59); LDL Cholesterol,Calculated 69 mg/dL (< 100); Magnesium 1.7 mg/dL (1.6-2.6); Osmolality,Calculated 306 (280-300); Phosphorous 3.9 mg/dL (2.7-4.5); Potassium 3.9 mEq/L (3.5-5.1); Sodium 137 mEq/L (136-145); Triglycerides 66 mg/dL (< 150); eGFR For African Americans > 60 (> 60); eGFR For Non-African Americans 50 (> 60)
[2020-03-19 03:09] LABS: Thyroid Stimulating Hormone 0.419 mcIU/mL (0.340-5.600)
[2020-03-19] MEDS: Levalbuterol Neb 1.25 MG/3 ML IH SCH ×3 (04:20→11:34)
[2020-03-19] MEDS: Acetylcysteine 10% 2 ML INHSOL IH SCH ×3 (04:21→11:34)
[2020-03-19] MEDS ORDERED: *HR* Heparin 5,000 UNIT/ML VIAL SQ SCH (06:00)
[2020-03-19] MEDS ORDERED: Regadenoson 0.4 MG/5 ML SYRINGE IVP ONE (06:00)
[2020-03-19 08:22] LABS: Estimated Average Glucose 249 mg/dl
[2020-03-19] MEDS ORDERED: Aspirin Enteric Coated 81 MG Tablet PO SCH (09:00)
[2020-03-19] MEDS ORDERED: Magnesium Oxide 400 MG TABLET PO SCH (09:30)
[2020-03-19] MEDS ORDERED: Insulin DETEMIR 100 UNIT/ML X5UNITS SQ SCH (09:30)
[2020-03-19] MEDS ORDERED: Fluticasone Propionate Nasal 50 MCG/SPRAY BOTTLE NS SCH (09:30)
[2020-03-19] MEDS ORDERED: Cholecalciferol (D-3) 1,000 UNIT (25MCG) TABLET PO SCH (09:30)
[2020-03-19] MEDS ORDERED: Budesonide/Formoterol 160/4.5 1 PUFF INH IH SCH (10:00)
[2020-03-19 11:00] VITALS: BP 127/72
== END 2020-03-19 13:42 | disposition home or self-care (01) ==
LOC: EMEROOARM 19:17 → 3BNU 19:17 → SUATTDRO 03-19 00:18 → 3BNU 03-19 01:05
PROVIDERS: ADMIT Student in an Organized Health Care Education/Training Program; ATTEND Internal Medicine

== ENCOUNTER 2020-06-17 17:56 | Observation (INO) ==
[2020-06-17] MEDS ORDERED: 0.9 % Sodium Chloride 1,000 ML IV ONE (18:23)
[2020-06-17 18:40] LABS: Basophils % 0.1 %; Hematocrit 46.5 % (35.3-44.9); Hemoglobin 14.8 g/dL (11.5-15.4); Immature Granulocytes % 0.5 % (0-4); Lymphocytes # 0.4 K/mcL (0.6-4.6); Lymphocytes % 2.5 %; Mean Corpuscular HGB Conc 31.8 g/dL (31.6-35.5); Mean Corpuscular Hemoglobin 30.5 pg (28.0-33.3); Mean Corpuscular Volume 95.9 fL (83.0-100.0); Mean Platelet Volume 11.2 fL (9.4-12.4); Monocytes # 0.8 K/mcL (0.0-1.3); Monocytes % 5.4 %; Neutrophils # 13.7 K/mcL (1.6-8.9); Platelet Count 193 K/mcL (140-400); Red Blood Count 4.85 M/mcL (3.82-4.97); Red Cell Distribution Width 14.2 % (11.5-14.5); Segmented Neutrophils % 91.5 %; White Blood Count 14.9 K/mcL (4.3-11.1)
[2020-06-17 18:42] LABS: Prothrombin Time 12.1 Seconds (9.4-12.1)
[2020-06-17 18:45] LABS: Activated Partial Thrombo Time 21.2 Seconds (26.0-36.0)
[2020-06-17 19:00] LABS: BUN/Creatinine Ratio 50 (6-26); Blood Urea Nitrogen 51 mg/dL (8-23); Calcium 9.9 mg/dL (8.6-10.3); Carbon Dioxide 33 mEq/L (23-29); Chloride 86 mEq/L (98-107); Glucose 753 mg/dL (70-105); Osmolality,Calculated 324 (280-300); Potassium 4.5 mEq/L (3.5-5.1); Sodium 132 mEq/L (136-145); Troponin I 0.03 ng/mL (< 0.04); eGFR For African Americans > 60 (> 60); eGFR For Non-African Americans 52 (> 60)
[2020-06-17 19:24] LABS: Adenovirus Not Detected (Not Detect); Bordetella Pertussis Not Detected (Not Detect); Chlamydophila pneumoniae Not Detected (Not Detect); Coronavirus 229E Not Detected (Not Detect); Coronavirus HKU1 Not Detected (Not Detect); Coronavirus NL63 Not Detected (Not Detect); Coronavirus OC43 Not Detected (Not Detect); Human Metapneumovirus Not Detected (Not Detect); Human Rhinovirus/Enterovirus Not Detected (Not Detect); Influenza A Subtype 2009 H1 Not Detected (Not Detect); Influenza B Not Detected (Not Detect); Mycoplasma pneumoniae Not Detected (Not Detect); Parainfluenza Virus 1 Not Detected (Not Detect); Parainfluenza Virus 2 Not Detected (Not Detect); Parainfluenza Virus 3 Not Detected (Not Detect); Parainfluenza Virus 4 Not Detected (Not Detect); Respiratory Syncytial Virus Not Detected (Not Detect); SARS-CoV-2 Not Detected (Not Detect)
[2020-06-17] MEDS ORDERED: Isovue-370 500 ML BOTTLE IVP ONE (19:28)
[2020-06-17 20:13] LABS: VBG HCO3 38 mEq/L (21-27); VBG PCO2 72 mmHg (41-51); VBG PH 7.33 pH Units (7.32-7.42); VBG PO2 50 mmHg (25-50)
[2020-06-17] MEDS ORDERED: Insulin Human Regular 10 UNIT in 0.9 % Sodium Chloride 10 ML IV ONE ×2 (20:23→20:36)
[2020-06-17 20:51] LABS: Magnesium 2.1 mg/dL (1.6-2.6); Phosphorous 4.6 mg/dL (2.7-4.5)
[2020-06-17] MEDS ORDERED: Dextrose Gel 15 GM/37.5 ML TUBE PO PRN ×2 (21:41)
[2020-06-17] MEDS ORDERED: *HR* Dextrose 50 % in Water (Vial) 50 ML VIAL IVP PRN (21:41)
[2020-06-17] MEDS ORDERED: D5% in Water 1,000 ML IVC PRN (21:41)
[2020-06-17] MEDS ORDERED: Naloxone 0.4 MG/ML INJ IVP PRN (21:45)
[2020-06-17] MEDS ORDERED: Insulin LISPRO 300 UNITS/3 ML VIAL SUBQ SCH (21:45)
[2020-06-17] MEDS ORDERED: Ipratropium/Albuterol Neb 3 ML IH PRN (22:07)
[2020-06-17] MEDS: 0.9 % Sodium Chloride 1,000 ML IVC SCH (23:37)
[2020-06-17] MEDS: Budesonide/Formoterol 160/4.5 1 PUFF INH IH SCH (23:40)
[2020-06-18] MEDS: *HR* HYDROcodone/Acet 5/325 mg TABLET PO PRN (02:16)
[2020-06-18 02:25] LABS: Basophils % 0.1 %; Segmented Neutrophils % 90.4 %
[2020-06-18 02:27] LABS: Eosinophils % 0.1 %; Hemoglobin 13.8 g/dL (11.5-15.4); Immature Granulocytes % 0.4 % (0-4); Immature Platelets 9.8 % (1.1-6.1); Lymphocytes # 0.4 K/mcL (0.6-4.6); Lymphocytes % 2.6 %; Mean Corpuscular HGB Conc 32.1 g/dL (31.6-35.5); Mean Corpuscular Hemoglobin 30.2 pg (28.0-33.3); Mean Corpuscular Volume 94.1 fL (83.0-100.0); Mean Platelet Volume 11.7 fL (9.4-12.4); Monocytes % 6.4 %; Neutrophils # 14.4 K/mcL (1.6-8.9); Platelet Count 147 K/mcL (140-400); Red Blood Count 4.57 M/mcL (3.82-4.97); White Blood Count 15.9 K/mcL (4.3-11.1)
[2020-06-18 02:43] LABS: BUN/Creatinine Ratio 54 (6-26); Blood Urea Nitrogen 40 mg/dL (8-23); Calcium 9.1 mg/dL (8.6-10.3); Carbon Dioxide 33 mEq/L (23-29); Chloride 93 mEq/L (98-107); Glucose 360 mg/dL (70-105); Osmolality,Calculated 306 (280-300); Potassium 4.3 mEq/L (3.5-5.1); Sodium 136 mEq/L (136-145); eGFR For African Americans > 60 (> 60); eGFR For Non-African Americans > 60 (> 60)
[2020-06-18] MEDS: *HR* Heparin 5,000 UNIT/ML VIAL SQ SCH ×2 (05:20→17:18)
[2020-06-18] MEDS ORDERED: Insulin LISPRO 300 UNITS/3 ML VIAL SUBQ SCH (07:30)
[2020-06-18] MEDS: Insulin LISPRO 300 UNITS/3 ML VIAL SUBQ SCH ×6 (07:32→21:18)
[2020-06-18] MEDS: polyethylene glycoL 3350 17 GM POWD.PACK PO SCH (08:16)
[2020-06-18] MEDS: Tiotropium 10 INH DOSE IH SCH (10:21)
[2020-06-18] MEDS: Budesonide/Formoterol 160/4.5 1 PUFF INH IH SCH ×2 (10:21→20:05)
[2020-06-18] MEDS: 0.9 % Sodium Chloride 1,000 ML IVC SCH (12:28)
[2020-06-18] MEDS ORDERED: Insulin DETEMIR 100 UNIT/ML X5UNITS SUBQ SCH (21:00)
[2020-06-19 01:05] LABS: Hematocrit 39.7 % (35.3-44.9); Hemoglobin 12.5 g/dL (11.5-15.4); Mean Corpuscular HGB Conc 31.5 g/dL (31.6-35.5); Mean Corpuscular Hemoglobin 30.3 pg (28.0-33.3); Mean Corpuscular Volume 96.4 fL (83.0-100.0); Platelet Count 153 K/mcL (140-400); Red Blood Count 4.12 M/mcL (3.82-4.97); Red Cell Distribution Width 14.3 % (11.5-14.5)
[2020-06-19 01:23] LABS: BUN/Creatinine Ratio 56 (6-26); Blood Urea Nitrogen 31 mg/dL (8-23); Calcium 8.9 mg/dL (8.6-10.3); Carbon Dioxide 35 mEq/L (23-29); Chloride 99 mEq/L (98-107); Glucose 256 mg/dL (70-105); Osmolality,Calculated 299 (280-300); Sodium 137 mEq/L (136-145); eGFR For African Americans > 60 (> 60); eGFR For Non-African Americans > 60 (> 60)
[2020-06-19 01:50] LABS: Estimated Average Glucose 306 mg/dl; Hemoglobin A1C 12.3 %
[2020-06-19 02:19] LABS: Basophils % 0.1 %; Eosinophils % 0.1 %; Hematocrit 41.2 % (35.3-44.9); Hemoglobin 12.7 g/dL (11.5-15.4); Immature Granulocytes % 0.5 % (0-4); Lymphocytes # 0.4 K/mcL (0.6-4.6); Lymphocytes % 4.1 %; Mean Corpuscular HGB Conc 30.8 g/dL (31.6-35.5); Mean Corpuscular Hemoglobin 30.1 pg (28.0-33.3); Mean Corpuscular Volume 97.6 fL (83.0-100.0); Mean Platelet Volume 11.4 fL (9.4-12.4); Monocytes # 0.8 K/mcL (0.0-1.3); Monocytes % 7.2 %; Neutrophils # 9.2 K/mcL (1.6-8.9); Platelet Count 152 K/mcL (140-400); Red Blood Count 4.22 M/mcL (3.82-4.97); Red Cell Distribution Width 14.4 % (11.5-14.5); White Blood Count 10.4 K/mcL (4.3-11.1)
[2020-06-19] MEDS: *HR* Heparin 5,000 UNIT/ML VIAL SQ SCH ×2 (06:33→17:39)
[2020-06-19] MEDS: Budesonide/Formoterol 160/4.5 1 PUFF INH IH SCH ×2 (07:56→21:53)
[2020-06-19] MEDS: Tiotropium 10 INH DOSE IH SCH (07:56)
[2020-06-19] MEDS: polyethylene glycoL 3350 17 GM POWD.PACK PO SCH (08:58)
[2020-06-19] MEDS: Insulin LISPRO 300 UNITS/3 ML VIAL SUBQ SCH ×6 (08:59→21:12)
[2020-06-19] MEDS: *HR* HYDROcodone/Acet 5/325 mg TABLET PO PRN (09:48)
[2020-06-19] MEDS ORDERED: Famotidine 20 MG TABLET PO PRN (11:34)
[2020-06-19] MEDS ORDERED: *HR* OxyCODONE/APAP 10/325 TABLET PO PRN (11:34)
[2020-06-19] MEDS ORDERED: Isovue-370 500 ML BOTTLE IVP ONE (17:03)
[2020-06-19] MEDS: Insulin DETEMIR 100 UNIT/ML X5UNITS SUBQ SCH (21:12)
[2020-06-19] MEDS: Magnesium Oxide 400 MG TABLET PO SCH (21:12)
[2020-06-20 02:05] LABS: Hematocrit 44.1 % (35.3-44.9); Hemoglobin 13.9 g/dL (11.5-15.4); Mean Corpuscular HGB Conc 31.5 g/dL (31.6-35.5); Mean Corpuscular Hemoglobin 30.6 pg (28.0-33.3); Mean Corpuscular Volume 97.1 fL (83.0-100.0); Platelet Count 151 K/mcL (140-400); Red Blood Count 4.54 M/mcL (3.82-4.97); Red Cell Distribution Width 14.2 % (11.5-14.5); White Blood Count 10.1 K/mcL (4.3-11.1)
[2020-06-20 02:09] LABS: BUN/Creatinine Ratio 54 (6-26); Blood Urea Nitrogen 26 mg/dL (8-23); Calcium 9.6 mg/dL (8.6-10.3); Carbon Dioxide 33 mEq/L (23-29); Chloride 96 mEq/L (98-107); Glucose 67 mg/dL (70-105); Osmolality,Calculated 285 (280-300); Potassium 4.2 mEq/L (3.5-5.1); Sodium 136 mEq/L (136-145); eGFR For African Americans > 60 (> 60); eGFR For Non-African Americans > 60 (> 60)
[2020-06-20] MEDS: *HR* Heparin 5,000 UNIT/ML VIAL SQ SCH ×2 (05:13→16:34)
[2020-06-20] MEDS: polyethylene glycoL 3350 17 GM POWD.PACK PO SCH (07:46)
[2020-06-20] MEDS: Tiotropium 10 INH DOSE IH SCH (07:50)
[2020-06-20] MEDS: Budesonide/Formoterol 160/4.5 1 PUFF INH IH SCH ×2 (07:50→19:56)
[2020-06-20] MEDS ORDERED: Aspirin Enteric Coated 81 MG Tablet PO SCH (09:00)
[2020-06-20] MEDS ORDERED: Tiotropium 10 INH DOSE IH SCH (10:00)
[2020-06-20] MEDS: Insulin LISPRO 300 UNITS/3 ML VIAL SUBQ SCH ×5 (11:39→20:12)
[2020-06-20] MEDS: Insulin DETEMIR 100 UNIT/ML X5UNITS SUBQ SCH (20:11)
[2020-06-20] MEDS: Magnesium Oxide 400 MG TABLET PO SCH (20:11)
[2020-06-21] MEDS: *HR* Heparin 5,000 UNIT/ML VIAL SQ SCH (06:05)
[2020-06-21] MEDS: Tiotropium 10 INH DOSE IH SCH (07:41)
[2020-06-21] MEDS: Budesonide/Formoterol 160/4.5 1 PUFF INH IH SCH (07:41)
[2020-06-21] MEDS: Magnesium Oxide 400 MG TABLET PO SCH (08:32)
[2020-06-21] MEDS: Insulin LISPRO 300 UNITS/3 ML VIAL SUBQ SCH ×4 (08:33→12:31)
[2020-06-21] MEDS: polyethylene glycoL 3350 17 GM POWD.PACK PO SCH (08:33)
[2020-06-21 11:48] VITALS: BP 130/57
== END 2020-06-21 16:50 | disposition home or self-care (01) ==
LOC: 2ANU 17:56 → EMEROOARM 17:56 → SUATTDRO 21:11 → 2ANU 22:28
PROVIDERS: ADMIT Family Medicine; ATTEND Student in an Organized Health Care Education/Training Program